=== PATIENT | male | born 2000 | race Caucasian/White ===

== ENCOUNTER 2020-11-01 11:23 | Emergency (ER) | payer SELFPAY ==
[~2020-11-01] VITALS: Ht 165.1 cm; Wt 52.2 kg
[2020-11-01 11:25] VITALS: BP 114/72
--- NOTE | 2020-11-01 11:30 | NUR ---
PT IS REFUSING TO HAVE ANY TREATMENT AND WANT TO LEAVE. MD AT BEDSIDE.
[2020-11-01] MEDS ORDERED: CEPH500T PO (11:33)
--- NOTE | 2020-11-01 11:41 | NUR ---
Patient does not wish to proceed with medical care recommended by Dr. Robert Teran. Patient given information related to possible complications, up to and including , which could occur as a result of leaving the hospital at this time. Patient verbalizes understanding of risks involved due to leaving against medical advice. Patient has signed AMA form.
--- NOTE | 2020-11-01 11:45 | NUR ---
unable to depart on [facility] [facility]. d/t program unable to click save or depart.
== END 2020-11-01 13:00 | disposition left against medical advice (07) ==
LOC: ER 11:30
DX: R56.9 Unspecified convulsions (principal); F19.10 Other psychoactive substance abuse, uncomplicated; R22.32 Localized swelling, mass and lump, left upper limb; F17.200 Nicotine dependence, unspecified, uncomplicated; Z59.0 Homelessness